=== PATIENT | female | born 1985 ===

== ENCOUNTER 2018-03-24 11:15 | Outpatient (CLI) | payer MEDICAID | END 2018-03-24 11:16 | disposition home or self-care (01) | LOC: C.DIABED 11:16 ==

== ENCOUNTER 2018-04-14 13:24 | Outpatient (CLI) | payer MEDICAID | END 2018-04-14 13:25 | disposition home or self-care (01) | LOC: C.DIABED 13:24 | DX: Z71.89 Other specified counseling (principal) ==